=== PATIENT | male | born 1985 | race Caucasian/White ===

== ENCOUNTER → 2022-10-25 | Outpatient (CLI) | payer OTHER, BC, SELFPAY ==
--- NOTE | 2022-10-25 11:30 | NASAL_PTH ---
PATIENT: ERIC KO LOC: [facility] U#:[id number] AGE/SX: 37/M ROOM: RE10/25/[address]: Dr. Ganesh Cazares MD : 1985 BED: DIS: 10/25/2022 SPEC #: [id number] RECD: 10/25/22 14:57 STATUS: KARINE LIOR #: [id number] THIERRY: 10/25/22 11:[address]: Ganesh Cazares DEPT: SURGICAL PATHOLOGY RECD BY: Lakeshia Burnette ENTERED: 10/26/22 09:00 SP TYPE: NASAL SPEC OTHR DR: KATHRYN Tissues: A - Ethmoid sinus, NOS B - Ethmoid sinus, NOS Procedures: Decalcification bone/plaque Surgery Specimen Level III HEADER OPERATION: Open septorhinoplasty, functional endoscopic sinus surgery PRE-OP DIAGNOSIS: Nasal congestion, deviated nasal septum, polyp of nasal cavity TISSUE SUBMITTED: A ? Right nasal contents, B ? Left nasal contents MICROSCOPIC DIAGNOSIS A. Right nasal contents, curettings: Fragments of benign sinonasal polyp. Consistent with chronic sinusitis. Bone with no significant pathologic change. B. Left nasal contents, curettings: Fragments of benign sinonasal polyp. Consistent with chronic sinusitis. Bone with no significant pathologic change. AM:natalie 10/31/2022 MICROSCOPIC DESCRIPTION Slides are reviewed. GROSS DESCRIPTION A - Received in fixative is one container labeled with the patient's name and designated right nasal contents. The specimen consists of multiple irregular fragments of pink-barros soft tissue and bony tissue that in aggregate measure 4 x 3 x 0.6 cm. Store Stocker portions are submitted in one cassette after decalcification. B - Received in fixative is one container labeled with the patient's name and designated left nasal contents. The specimen consists of multiple irregular fragments of pink-barros soft tissue and bony tissue that in aggregate measure 4 x 3 x 0.5 cm. Store Stocker portions are submitted in one cassette after decalcification. / AM:natalie 10/26/2022 TC:3 CPT: 82604 x2, 10026 x2
== END | disposition home or self-care (01) ==
PROVIDERS: Visit Provider Otolaryngology
DX: R09.81 Nasal congestion (principal); J34.2 Deviated nasal septum; J33.0 Polyp of nasal cavity
CPT/HCPCS: 88304; 88305; 88311

== ENCOUNTER → 2024-05-29 | Outpatient (CLI) | payer OTHER, SELFPAY | END | disposition home or self-care (01) | PROVIDERS: Referring Provider Otolaryngology; Visit Provider Otolaryngology | DX: J32.8 Other chronic sinusitis (principal) | CPT/HCPCS: 87070; 87077; 87186; 87205 ==

== ENCOUNTER → 2024-07-24 | Outpatient (CLI) | payer BC, SELFPAY ==
--- NOTE | 2024-07-24 06:48 | CT_ITS ---
INDICATION: SINUSITIS EXAMINATION: CT SINUSES - CT Sinuses W/O Contrast Injection TECHNIQUE: Helically acquired images were obtained of the paranasal sinuses. The protocol utilizes one or more of the following dose reduction techniques: automated exposure control, adjustment of mA and/or kV according to patient size,and/or use of iterative reconstruction technique. IV Contrast dosage and agent: None RADIATION DOSAGE (If Supplied By Facility): CTDIvol = ( 33.06 ) mGy, DLP = ( 771.87 ) mGycm COMPARISON: FINDINGS: FRONTAL SINUSES AND RECESSES: Severe mucosal thickening in the left frontal sinus. ETHMOID AIR CELLS: Severe mucosal thickening. MAXILLARY SINUSES: Severe mucosal thickening. OSTIOMEATAL COMPLEXES: Bilateral osteotomy of the OM unit. SPHENOID SINUSES: Mild mucosal thickening of the sphenoid sinus SPHENOETHMOIDAL RECESSES: There is mucosal thickening in the sphenoethmoidal recess. ANCILLARY FINDINGS: NASAL TURBINATES: Unremarkable. NASAL SEPTUM: Nasal septum is deviated to the left approximately 4 mm. ORBITS: Unremarkable. VISUALIZED DENTITION: No periodontal osseous erosion. ANTERIOR CRANIAL FOSSA: Unremarkable. CT/Sinus/Facial Bone IMPRESSION: Severe mucosal thickening in the ethmoid air cells, maxillary sinuses and left frontal sinus. Electronically Signed: Dwayne Fisher MD at 8:19 EDT ,
== END | disposition home or self-care (01) ==
PROVIDERS: Referring Provider Otolaryngology; Visit Provider Otolaryngology
DX: J32.8 Other chronic sinusitis (principal)
CPT/HCPCS: 70486